=== PATIENT | male | born 1980 | race African-American/Black ===

== ENCOUNTER 2018-11-22 10:50 | Emergency (ER) | payer SELFPAY ==
[2018-11-22] MEDS ORDERED: NA CHLORIDE 0.9% 1,000 ML ONE ×2 (12:17→14:47)
[2018-11-22] MEDS ORDERED: PANTOPRAZOLE 40 MG INJ ONE (12:17)
[2018-11-22] MEDS ORDERED: MORPHINE 4 MG/ML SYR ONE (12:17)
[2018-11-22] MEDS ORDERED: ONDANSETRON 4 MG/2 ML VIAL ONE (12:17)
[2018-11-22 12:39] LABS: Absolute Lymphocytes (CBC) 1.2 K/uL (0.7-4.9); Absolute Monocytes 0.5 K/uL (0.1-1.3); Absolute Neutrophil 5.8 K/uL (1.8-8.0); Basophils % 0.6 % (0-1.3); Eosinophils % 1.1 % (0-4.4); Hematocrit 44.9 % (39.6-49.0); Lymphocytes % 15.7 % (15.3-44.8); MPV 9.5 fL (7.6-11.3); Monocytes % 6.3 % (3.3-12.3); RBC Red Blood Cell Count 4.74 M/uL (4.33-5.43)
[2018-11-22 12:56] LABS: ALT/SGPT 26 U/L (12-78); AST/SGOT 26 U/L (15-37); Albumin 3.9 g/dL (3.4-5.0); Alkaline Phosphatase 81 U/L (45-117); BUN Blood Urea Nitrogen 12 mg/dL (7-18); Bicarbonate 22 mmol/L (21-32); Bilirubin Direct < 0.1 mg/dL (0-0.2); Bilirubin Total 0.2 mg/dL (0.2-1.0); Glucose Level 102 mg/dL (74-106); Lipase 133 U/L (73-393); Protein, Total 7.6 g/dL (6.4-8.2); Sodium Level 139 mmol/L (136-145)
[2018-11-22 13:14] LABS: Blood Morphology Comment NOT SEEN (NOT SEEN); Platelet Estimate ADEQ; Urine White Blood Cell Casts OK
--- NOTE | 2018-11-22 14:21 | RAD REPORT ---
EXAM DESCRIPTION: CTAbdomen Pelvis W Contrast - 11/22/2018 2:12 pm CLINICAL HISTORY: Abdominal pain. ABD PAIN COMPARISON: No comparisons TECHNIQUE: Biphasic CT imaging of the abdomen and pelvis was performed with 100 ml non-ionic IV cont rast. All CT scans are performed using dose optimization technique as appropriate and may include automated exposure control or mA/KV adjustment according to patient size. FINDINGS: The lung bases are clear. The liver, spleen, pancreas, adrenal glands and kidneys are within normal limits. No bowel obstruction, free air, free fluid or abscess. There is a large amount of stool in the colon compatible with constipation. The appendix is normal. No evidence of significant lymphadenopathy. No suspicious bony findings. IMPRESSION: Marked constipation.
--- NOTE | 2018-11-22 14:34 | EDPHYS ---
Physician Documentation [facility] Name: Nomi Lyons Age: 38 yrs Sex: Male : 1980 Arrival Date: 11/22/2018 Time: 10:53 Bed 15 Private MD: None, None ED Physician Will España HPI: 11/22 11:35 This 38 yrs old Black Male presents to ER via Wheelchair with complaints of Abdominal cp Pain. 11:35 The patient presents with abdominal pain in the periumbilical area. Onset: The cp symptoms/episode began/occurred this morning. 11:35 The symptoms do not radiate. Associated signs and symptoms: Pertinent negatives: blood cp in stools, chest pain, constipation, diarrhea, fever, hematuria, testicular pain, vomiting. Severity of pain: in the emergency department the pain is actually worse moderately. Historical: - Allergies: 11:00 No Known Allergies; aj1 - PMHx: 11:00 None; aj1 - Immunization history:: Adult Immunizations unknown. - Social history:: Smoking status: unknown. - Ebola Screening: : No symptoms or risks identified at this time. ROS: 11:40 Constitutional: Negative for body aches, chills, fever, poor PO intake. cp 11:40 Eyes: Negative for injury, pain, redness, and discharge. cp 11:40 ENT: Negative for drainage from ear(s), ear pain, sore throat, difficulty swallowing, difficulty handling secretions. 11:40 Cardiovascular: Negative for chest pain, edema, palpitations. 11:40 Respiratory: Negative for cough, shortness of breath, wheezing. 11:40 Abdomen/GI: Positive for abdominal pain, Negative for vomiting, diarrhea, constipation, anorexia, black/tarry stool, rectal bleeding. 11:40 Back: Negative for radiated pain. 11:40 : Negative for urinary symptoms, testicular pain 11:40 Skin: Negative for cellulitis, rash. 11:40 Neuro: Negative for altered mental status, dizziness, headache, weakness. 11:40 All other systems are negative. Exam: 11:45 Constitutional: The patient appears in no acute distress, alert, awake, non-toxic, well cp developed, well nourished, uncomfortable. 11:45 Head/Face: Normocephalic, atraumatic. Eyes: Pupils equal round and reactive to light, cp extra-ocular motions intact. Lids and lashes normal. Conjunctiva and sclera are non-icteric and not injected. Cornea within normal limits. Periorbital areas with no swelling, redness, or edema. ENT: Nares patent. No nasal discharge, no septal abnormalities noted. Tympanic membranes are normal and external auditory canals are clear. Oropharynx with no redness, swelling, or masses, exudates, or evidence of obstruction, uvula midline. Mucous membranes moist. Chest/axilla: Normal chest wall appearance and motion. Nontender with no deformity. No lesions are appreciated. 11:45 Cardiovascular: Rate: normal, Rhythm: regular, Heart sounds: murmur, not appreciated. 11:45 Respiratory: the patient does not display signs of respiratory distress, Respirations: normal, no use of accessory muscles, no retractions, no splinting, no tachypnea, labored breathing, is not present, Breath sounds: are clear throughout, no decreased breath sounds, no stridor, no wheezing. 11:45 Abdomen/GI: Inspection: abdomen appears normal, Bowel sounds: active, all quadrants, Palpation: soft, in all quadrants, moderate abdominal tenderness, in the umbilical area, right upper quadrant and left upper quadrant, rebound tenderness, is not appreciated, voluntary guarding, is elicited in the umbilical area, right upper quadrant and left upper quadrant. 11:45 Back: CVA tenderness, is absent. 11:45 Skin: cellulitis, is not appreciated, no rash present. 11:45 Neuro: Orientation: to person, place \T\ time. Mentation: is normal, Cerebellar function: is grossly normal, Motor: moves all fours, strength is normal, Sensation: is normal. Vital Signs: 11:00 BP 112 / 80; Pulse 88; Resp 20; Temp 97.8; Pulse Ox 100% on R/A; Weight 61.23 kg (R); aj1 Height 5 ft. 11 in. (180.34 cm) (R); Pain 10/10; 12:00 BP 134 / 96; Pulse 89; Resp 16 S; Pulse Ox 100% on R/A; Pain 10/10; jl7 14:00 BP 130 / 89; Pulse 85; Resp 16 S; Pulse Ox 99% on R/A; Pain 0/10; jl7 11:00 Body Mass Index 18.83 (61.23 kg, 180.34 cm) aj1 MDM: 11:22 Patient medically screened. 14:30 Data reviewed: vital signs, nurses notes, lab test result(s), radiologic studies, CT cp scan. 14:30 Counseling: I had a detailed discussion with the patient and/or guardian regarding: the cp historical points, exam findings, and any diagnostic results supporting the discharge/admit diagnosis, lab results, radiology results, to return to the emergency department if symptoms worsen or persist or if there are any questions or concerns that arise at home. Response to treatment: the patient's symptoms have markedly improved after treatment, and as a result, I will discharge patient. Special discussion: Based on the patient's Hx, exam, and Dx evaluation, there is no indication for emergent surgery or inpatient Tx. It is understood by the patient/guardian that if the Sx's persist or worsen they need to return immediately for re-evaluation. 11/22 11:35 Order name: Basic Metabolic Panel; Complete Time: 14:24 11/22 14:24 Interpretation: Normal except: CL 110. 11/22 11:35 Order name: CBC with Diff; Complete Time: 14:24 11/22 12:50 Interpretation: Normal except: JOS% 76.3. 11/22 11:35 Order name: Creatinine for Radiology; Complete Time: 14:24 11/22 11:35 Order name: Hepatic Function; Complete Time: 14:24 11/22 14:25 Interpretation: Normal except: GLOB 3.7. 11/22 11:35 Order name: Lipase; Complete Time: 14:24 11/22 13:15 Order name: CBC Smear Scan; Complete Time: 14:24 EDMS 11/22 11:35 Order name: CT Abd/Pelvis - W/Contrast: give po contrast; Complete Time: 14:24 11/22 14:25 Interpretation: Report reviewed. 11/22 13:55 Order name: Urine Dipstick--Ancillary (enter results); Complete Time: 14:53 11/22 14:53 Interpretation: Normal except: UPH 7.5. 11/22 11:35 Order name: IV Saline Lock; Complete Time: 12:24 11/22 11:35 Order name: Labs collected and sent; Complete Time: 12:51 11/22 11:35 Order name: Urine Dipstick-Ancillary (obtain specimen); Complete Time: 15:12 cp 11/22 14:25 Order name: PO challenge; Complete Time: 18:36 cp Administered Medications: 11:11 Drug: Zofran 4 mg Route: IVP; Site: left wrist; jl7 11:30 Follow up: Response: No adverse reaction; Nausea is decreased jl7 11:13 Drug: ProTONIX 40 mg Route: IVP; Site: left wrist; jl7 11:30 Follow up: Response: No adverse reaction jl7 11:16 Drug: morphine 2 mg Route: IVP; Site: left wrist; jl7 11:30 Follow up: Response: No adverse reaction; Pain is decreased jl7 12:10 Drug: NS 0.9% 1000 ml Route: IV; Rate: 1 bolus; Site: left wrist; jl7 13:15 Follow up: IV Status: Completed infusion jl7 15:11 Not Given (Patient Refused): NS 0.9% 1000 ml IV at 1 bolus Per protocol; 1000 mL bolus jl7 15:15 Drug: Magnesium Citrate Liquid 300 ml Route: PO; jl7 15:15 Follow up: Response: Medication administered at discharge. jl7 Disposition: 16:19 Co-signature as Attending Physician, Will España MD I agree with the assessment and kdr plan of care. Disposition: 11/22/18 14:33 Discharged to Home. Impression: Unspecified abdominal pain, Constipation, unspecified. - Condition is Stable. - Discharge Instructions: Abdominal Pain, Adult, Constipation, Adult. - Prescriptions for Zofran 4 mg Oral Tablet - take 1 tablet by ORAL route every 12 hours As needed; 20 tablet. Miralax 17 gram/dose Oral - take 1 packet by ORAL route once daily dilute powder in 8 ounces of water or juice; 20 packet. - Medication Reconciliation Form, Thank You Letter, Antibiotic Education, Prescription Opioid Use form. - Follow up: Emergency Department; When: As needed; Reason: Worsening of condition. - Problem is new. - Symptoms have improved. Signatures: Dispatcher [employer] EDMS Dhara Yates RN RN aj1 Will España MD MD kdr Page, Corey, PA PA Madelyn Kerr RN RN jl7 Corrections: (The following items were deleted from the chart) 15:17 14:33 11/22/2018 14:33 Discharged to Home. Impression: Unspecified abdominal pain; jl7 Constipation, unspecified. Condition is Stable. Forms are Medication Reconciliation Form, Thank You Letter, Antibiotic Education, Prescription Opioid Use. Follow up: Emergency Department; When: As needed; Reason: Worsening of condition. Problem is new. Symptoms have improved. cp
--- NOTE | 2018-11-22 14:34 | ER ---
Nurse's Notes [facility] Name: Nomi Lyons Age: 38 yrs Sex: Male : 1980 Arrival Date: 11/22/2018 Time: 10:53 Bed 15 Private MD: None, None Diagnosis: Unspecified abdominal pain;Constipation, unspecified Presentation: 11/22 10:58 Presenting complaint: Patient states: Reports abdominal pain in the center of his aj1 stomach since 0730 this morning. Denies N/V/D. Patient appears uncomfortable, restless in triage. Transition of care: patient was not received from another setting of care. Onset of symptoms was November 22, 2018 at 07:30. Risk Assessment: Do you want to hurt yourself or someone else? Patient reports no desire to harm self or others. Initial Sepsis Screen: Does the patient meet any 2 criteria? No. Patient's initial sepsis screen is negative. Does the patient have a suspected source of infection? Yes: Acute abdominal pain. Care prior to arrival: None. 10:58 Method Of Arrival: Wheelchair aj 10:58 Acuity: SHARI 3 aj1 Triage Assessment: 11:00 General: Appears in no apparent distress. uncomfortable, Behavior is cooperative, aj1 agitated, restless. Pain: Complains of pain in umbilical area Pain currently is 10 out of 10 on a pain scale. Neuro: Level of Consciousness is awake, alert, obeys commands. Cardiovascular: Patient's skin is warm and dry. Respiratory: Airway is patent Respiratory effort is even, unlabored, Respiratory pattern is regular, symmetrical. GI: Reports lower abdominal pain. Historical: - Allergies: 11:00 No Known Allergies; aj1 - PMHx: 11:00 None; aj1 - Immunization history:: Adult Immunizations unknown. - Social history:: Smoking status: unknown. - Ebola Screening: : No symptoms or risks identified at this time. Screenin:30 Abuse screen: Denies threats or abuse. Denies injuries from another. Nutritional jl7 screening: No deficits noted. Tuberculosis screening: No symptoms or risk factors identified. Fall Risk IV access (20 points). Total Hammonds Fall Scale indicates No Risk (0-24 pts). Assessment: 11:30 General: Appears uncomfortable, Behavior is cooperative, agitated, restless. Pain: jl7 Complains of pain in umbilical area Pain currently is 10 out of 10 on a pain scale. Quality of pain is described as crampy, Pain began 4 hours ago. Is continuous. Neuro: Level of Consciousness is awake, alert, obeys commands, Oriented to person, place, time, situation. Cardiovascular: Patient's skin is warm and dry. Respiratory: Airway is patent Respiratory effort is even, unlabored, Respiratory pattern is regular, symmetrical. GI: Bowel sounds present X 4 quads. Abd is soft Abdomen is tender to palpation in left lower quadrant Guarding noted in epigastric area, left upper quadrant and left lower quadrant Patient currently denies diarrhea, nausea, vomiting, pt began vomiting, reports "I haven't been nauseous or anything, it just came out of nowhere." Pt states the pain the is the same after vomiting. : No signs and/or symptoms were reported regarding the genitourinary system. EENT: No signs and/or symptoms were reported regarding the EENT system. Derm: Skin is pink, warm \\T\\ dry. 12:00 Reassessment: Patient denies pain at this time. Patient states feeling better. Patient jl7 states symptoms have improved. 13:00 Reassessment: Patient appears in no apparent distress at this time. No changes from jl7 previously documented assessment. Patient and/or family updated on plan of care and expected duration. Pain level reassessed. Patient is alert, oriented x 3, equal unlabored respirations, skin warm/dry/pink. 14:00 Reassessment: No changes from previously documented assessment. Patient and/or family jl7 updated on plan of care and expected duration. Pain level reassessed. Patient is alert, oriented x 3, equal unlabored respirations, skin warm/dry/pink. Vital Signs: 11:00 BP 112 / 80; Pulse 88; Resp 20; Temp 97.8; Pulse Ox 100% on R/A; Weight 61.23 kg (R); aj1 Height 5 ft. 11 in. (180.34 cm) (R); Pain 10/10; 12:00 BP 134 / 96; Pulse 89; Resp 16 S; Pulse Ox 100% on R/A; Pain 10/10; jl7 14:00 BP 130 / 89; Pulse 85; Resp 16 S; Pulse Ox 99% on R/A; Pain 0/10; jl7 11:00 Body Mass Index 18.83 (61.23 kg, 180.34 cm) aj1 ED Course: 10:53 Patient arrived in ED. mr 10:54 None, None is Private Physician. mr 11:00 Triage completed. aj1 11:00 Arm band placed on Patient placed in waiting room, Patient notified of wait time. aj1 11:19 Madelyn Awan, KRISHNA is Primary Nurse. jl7 11:22 Elpidio Tim PA is PHCP. cp 11:22 Will España MD is Attending Physician. cp 11:30 Missed attempt(s): 22 gauge in right forearm. Bleeding controlled, band aid applied, jl7 catheter tip intact. 11:40 Missed attempt(s): 22 gauge in right antecubital area. Bleeding controlled, band aid jl7 applied, catheter tip intact. 12:00 Inserted saline lock: 24 gauge in left forearm, using aseptic technique. jp3 12:30 Patient has correct armband on for positive identification. Placed in gown. Bed in low jl7 position. Call light in reach. Side rails up X 1. Pulse ox on. NIBP on. Warm blanket given. 12:30 Initial lab(s) drawn, by dental laboratory supervisor, sent to lab. jl7 14:10 CT completed. Patient tolerated procedure well. Patient moved to CT via wheelchair. jg6 Patient moved back from CT. 14:12 CT Abd/Pelvis - W/Contrast: give po contrast In Process Unspecified. EDMS 15:16 No provider procedures requiring assistance completed. IV discontinued, intact, jl7 bleeding controlled, No redness/swelling at site. Pressure dressing applied. Administered Medications: 11:11 Drug: Zofran 4 mg Route: IVP; Site: left wrist; jl7 11:30 Follow up: Response: No adverse reaction; Nausea is decreased jl7 11:13 Drug: ProTONIX 40 mg Route: IVP; Site: left wrist; jl7 11:30 Follow up: Response: No adverse reaction jl7 11:16 Drug: morphine 2 mg Route: IVP; Site: left wrist; jl7 11:30 Follow up: Response: No adverse reaction; Pain is decreased jl7 12:10 Drug: NS 0.9% 1000 ml Route: IV; Rate: 1 bolus; Site: left wrist; jl7 13:15 Follow up: IV Status: Completed infusion jl7 15:11 Not Given (Patient Refused): NS 0.9% 1000 ml IV at 1 bolus Per protocol; 1000 mL bolus [facility] 15:15 Drug: Magnesium Citrate Liquid 300 ml Route: PO; 7 15:15 Follow up: Response: Medication administered at discharge. jl7 Outcome: 14:33 Discharge ordered by MD. cp 15:16 Discharged to home ambulatory, with significant other. [facility] 15:16 Condition: stable 15:16 Discharge instructions given to patient, significant other, Instructed on discharge instructions, follow up and referral plans. medication usage, Demonstrated understanding of instructions, follow-up care, medications, Prescriptions given X 2. 15:17 Patient left the ED. jl7 Signatures: Dispatcher [employer] EDDhara Rausch, KRISHNA RN aj1 Rick, Elpidio Redd PA PA cp Leal, Jahala, RN RN jl7 Jos eC Roth jp3 Lillian Montielg6
[2018-11-22 14:47] LABS: Urine Blood NEGATIVE (NEG); Urine Glucose NEGATIVE (NEG); Urine Protein NEGATIVE (NEG); Urine Specific Gravity 1.025 (1.005-1.030); Urine pH 7.5 (5.0-7.0)
[2018-11-22] MEDS ORDERED: MAGNESIUM CITRATE 300 ML BOT ONE (14:51)
== END 2018-11-22 15:17 | disposition home or self-care (01) ==
LOC: ER 10:50
DX: K59.00 Constipation, unspecified (principal)
CPT/HCPCS: 36415; 74177; 80048; 80076; 81003; 83690; 85025; 96361; 96374; 96375; 99284; C9113; J2405; J7030; Q9967